=== PATIENT | male | born 1960 | race Caucasian/White ===

== ENCOUNTER 2017-11-20 19:41 | Emergency (ER) | payer OTHER ==
[~2017-11-20] VITALS: Ht 182.9 cm; Wt 109.4 kg
[2017-11-20 19:48] VITALS: BP 145/81; PULSE 99; RESP 20; TEMP 97.5; O2SAT 95
[2017-11-20] MEDS ORDERED: LISI10TA3 PO (19:58)
[2017-11-20] MEDS ORDERED: AMLO10TA2 PO (19:58)
[2017-11-20 20:05] VITALS: BP 132/80; PULSE 91; RESP 18; O2SAT 96
[2017-11-20] MEDS ORDERED: TETANUS/DIPHTHERIA TOXOID ADULT 0.5 ML VIAL IM ONE (20:15)
--- NOTE | 2017-11-20 20:16 | PD ---
HPI Chief Complaint: Head Injury Time Seen by Provider: 20:14 Travel History International Travel<30 days: No Contact w/Intl Traveler<30days: No Traveled to known affect area: No History of Present Illness HPI 57-year-old male presents to the emergency department by private transportation the care of his son for evaluation of head injury. According the patient just prior to arrival to the emergency department while trying to get his dog inside from the rain his dog knocked him down causing him to fall forward and he sustained a laceration to the frontal scalp from hitting the screen door threshold. Patient states he did not have loss of consciousness. Patient was able to get up off of the ground on his own without assistance. Patient does not report any upper extremity or lower extremity numbness tingling or weakness and does not note upper extremities being weaker than the lower extremities. Patient does not report any other injury; according the patient he did not injure his chest sternum ribs abdomen pelvis extremities or back. Patient did not report any other injury. Patient does admit to drinking alcohol. Patient does not know his tetanus status. The patient rates his pain as 1/10 in intensity. [facility] Past Medical History Narrative Medical Hypertension, daily alcohol use; ulnar nerve transposition surgery; nursing notes Diminished Hearing: No Hypertension: Yes Tetanus Vaccination: > 5 Years Influenza Vaccination: No Past Surgical History Other Surgery: Yes ("nerve moved in left elbow to help blood flow") Social History Alcohol Use: Yes ("at least 6 beers a day") Tobacco Use: No Substance Use: No Allergies-Medications (Allergen,Severity, Reaction): Coded Allergies: No Known Allergies (Unverified , 11/20/17) Reported Meds & Prescriptions Reported Meds & Active Scripts Active Reported Lisinopril 10 Mg Tab 10 Mg PO DAILY Amlodipine (Amlodipine Besylate) 10 Mg Tab 10 Mg PO DAILY Review of Systems Except as stated in HPI: all other systems reviewed are Neg Physical Exam Narrative GENERAL: Well-developed well-nourished male no acute distress no respiratory distress; GCS 15 SKIN: Warm and dry. HEAD: Atraumatic. Normocephalic. Except for right frontal scalp 5 cm laceration and left forehead 7 cm linear laceration, no palpable bony abnormality. EYES: Pupils equal and round and reactive to light. No scleral icterus. No injection or drainage. ENT: No nasal bleeding or discharge. Mucous membranes pink and moist. NECK: Trachea midline. No JVD. No midline tenderness to direct palpation along the cervical spine no bony step-off cervical collar in place. CARDIOVASCULAR: Regular rate and rhythm. RESPIRATORY: No accessory muscle use. Clear to auscultation. Breath sounds equal bilaterally. GASTROINTESTINAL: Abdomen soft, non-tender, nondistended. Hepatic and splenic margins not palpable. MUSCULOSKELETAL: Extremities without clubbing, cyanosis, or edema. No obvious deformities. NEUROLOGICAL: Awake and alert. No obvious cranial nerve deficits. Motor grossly within normal limits. Five out of 5 muscle strength in the arms and legs. Normal speech. PSYCHIATRIC: Appropriate mood and affect; insight and judgment normal. Data Data Last Documented VS Vital Signs Date Time Temp Pulse Resp B/P (MAP) Pulse Ox O2 Delivery O2 Flow Rate FiO2 11/20/17 20:05 91 18 132/80 (97) 96 Room Air 11/20/17 19:[address] Brain W/O Iv Contrast(Rout) (11/20/17 ) Ct Cerv Spine W/O Contrast (11/20/17 ) Tetanus/Diphtheria Tox Adult (Tetanus/Di (11/20/17 20:15) Cephalexin (Keflex) (11/20/17 21:30) Ed Discharge Order (11/20/17 21:23) MDM Medical Decision Making Medical Screen Exam Complete: Yes Emergency Medical Condition: Yes Medical Record Reviewed: Yes Interpretation(s) Last Impressions Head CT 11/20/17 0000 Signed Impressions: Service Date/Time: Monday, November 20, 2017 20:29 - CONCLUSION: 1. No acute intracranial abnormality. 2. Bilateral maxillary sinus disease. 3. Scalp laceration. John Bryson MD Cervical Spine CT 11/20/17 0000 Signed Impressions: Service Date/Time: Monday, November 20, 2017 20:29 - CONCLUSION: 1. No acute fracture or subluxation. 2. Partial opacification left mastoid air cells could be related to mastoiditis the right clinical setting. John Bryson MD Vital Signs Date Time Temp Pulse Resp B/P (MAP) Pulse Ox O2 Delivery O2 Flow Rate FiO2 11/20/17 20:05 91 18 132/80 (97) 96 Room Air 11/20/17 19:48 97.5 99 20 145/81 (102) 95 Differential Diagnosis Skull fracture or intracranial bleed scalp laceration cervical spine sprain strain fracture central cord injury concussion Narrative Course Cervical collar in place; imaging studies ordered; lacerations repair performed by mid-level provider; tetanus status updated GCS 15 Imaging studies resulted without acute intracranial or bony abnormality; Identified to have bilateral maxillary sinus disease CT cervical spine no bony abnormality per reading radiologist partial opacification of left mastoid air cells Cervical collar removed by me Patient reexamined no sinus tenderness to percussion no postauricular bony or soft tissue abnormalities identified Patient given first dose Keflex in the ED and tetanus status updated Diagnosis Primary Impression: Minor closed head injury Additional Impressions: Cervical myofascial strain Qualified Codes: S16.1XXA - Strain of muscle, fascia and tendon at neck level , initial encounter Forehead laceration Qualified Codes: S01.81XA - Laceration without foreign body of other part of head, initial encounter Scalp laceration Qualified Codes: S01.01XA - Laceration without foreign body of scalp, initial encounter Referrals: Primary Care Physician 2 days Patient Instructions: General Instructions Additional Instructions: 2 day wound check; suture removal at 5-7 days Complete course of antibiotic as prescribed Follow head injury precautions 24 hours Return to the emergency department for any concerns or change in condition Apply ice pack intermittently to areas of soft tissue swelling Avoid alcoholic beverages 24 hours May take as tolerated acetaminophen/Tylenol as often as every 4-6 hours as needed for minor pain or fever 100.4F or greater and/or ibuprofen/Advil/Motrin every 6-8 hours per package directions as needed for fever 100.4F or greater for pain associated with inflammation Med/Other Pt SpecificInfo: Prescription(s) given Scripts Cephalexin (Keflex) 500 Mg Capsule 500 MG PO Q6H for Infection for 7 Days, #28 CAP 0 Refills Prov: Julissa Hilliard MD 11/20/17 Julissa Hilliard MD November 20, 2017 20:16
--- NOTE | 2017-11-20 20:56 | RADRPT ---
EXAM DATE/TIME: 11/20/2017 20:29 [facility] COMPARISON: No previous studies available for comparison. INDICATIONS : Tripped. Fell and hit head. Pain. Frontal laceration. RADIATION DOSE: 62.98 CTDIvol (mGy) MEDICAL HISTORY : Hypertension. SURGICAL HISTORY : None. ENCOUNTER: Initial ACUITY: 1 day PAIN SCALE: 4/10 LOCATION: Left frontal TECHNIQUE: Multiple contiguous axial images were obtained of the head. Using automated exposure control and adj ustment of the mA and/or kV according to patient size, radiation dose was kept as low as reasonably a chievable to obtain optimal diagnostic quality images. DICOM format image data is available electro nically for review and comparison. FINDINGS: CEREBRUM: The ventricles are normal for age. No evidence of midline shift, mass lesion, hemorrhage or acute in farction. No extra-axial fluid collections are seen. POSTERIOR FOSSA: The cerebellum and brainstem are intact. The 4th ventricle is midline. The cerebellopontine angle i s unremarkable. EXTRACRANIAL: The visualized portion of the orbits is intact. Left frontal scalp laceration. Bilateral maxillary si nus disease. SKULL: The calvaria is intact. No evidence of skull fracture. CONCLUSION: 1. No acute intracranial abnormality. 2. Bilateral maxillary sinus disease. 3. Scalp laceration. John Bryson MD on November 20, 2017 at 20:53 Board Certified Radiologist. This report was verified electronically.
--- NOTE | 2017-11-20 20:58 | RADRPT ---
EXAM DATE/TIME: 11/20/2017 20:29 [facility] COMPARISON: No previous studies available for comparison. INDICATIONS : Tripped. Fell and hit head. Pain. RADIATION DOSE: 26.66 CTDIvol (mGy) MEDICAL HISTORY : Hypertension. SURGICAL HISTORY : None. ENCOUNTER: Initial ACUITY: 1 day PAIN SCALE: 5/10 LOCATION: neck TECHNIQUE: Volumetric scanning of the cervical spine was performed. Multiplanar reconstructions in the sagittal, coronal and oblique axial planes were performed. Using automated exposure control and adjustment o f the mA and/or kV according to patient size, radiation dose was kept as low as reasonably achievable to obtain optimal diagnostic quality images. DICOM format image data is available electronically f or review and comparison. FINDINGS: VERTEBRAE: Normal vertebral body height. Minimal fluid left mastoid air cells. ALIGNMENT: No evidence of subluxation. C2-C3: The bony spinal canal is normal in size. No evidence of disc bulge or herniation. The neural forami na are bilaterally patent. C3-C4: The bony spinal canal is normal in size. No evidence of disc bulge or herniation. The neural forami na are bilaterally patent. C4-C5: The bony spinal canal is normal in size. No evidence of disc bulge or herniation. The neural forami na are bilaterally patent. C5-C6: The bony spinal canal is normal in size. No evidence of disc bulge or herniation. The neural forami na are bilaterally patent. C6-C7: The bony spinal canal is normal in size. No evidence of disc bulge or herniation. The neural forami na are bilaterally patent. C7-T1: The bony spinal canal is normal in size. No evidence of disc bulge or herniation. The neural forami na are bilaterally patent. CONCLUSION: 1. No acute fracture or subluxation. 2. Partial opacification left mastoid air cells could be related to mastoiditis the right clinical se tting. John Bryson MD on November 20, 2017 at 20:55 Board Certified Radiologist. This report was verified electronically.
--- NOTE | 2017-11-20 21:18 | PD ---
Physical Exam Narrative I was asked by my attending physician Dr. Hilliard to reform laceration repair Data Data Last Documented VS Vital Signs Date Time Temp Pulse Resp B/P (MAP) Pulse Ox O2 Delivery O2 Flow Rate FiO2 11/20/17 20:05 91 18 132/80 (97) 96 Room Air 11/20/17 19:[address] Brain W/O Iv Contrast(Rout) (11/20/17 ) Ct Cerv Spine W/O Contrast (11/20/17 ) Tetanus/Diphtheria Tox Adult (Tetanus/Di (11/20/17 20:15) MDM Supervised Visit with ROXANA: Yes Procedures Procedure Narrative LACERATION LOCATION: Wound #1 left forehead, wound #2 right frontal scalp LENGTH: Wound #1 6.5 cm, wound #2 2.5 cm NUMBER OF STITCHES/YU: 12 sutures, 4 yu REPAIR: The area of the laceration was prepped with Betadine and sterilely draped. The laceration was infiltrated with 1% lidocaine. The wound was copiously irrigated and explored without evidence of foreign body, tendon injury or neurovascular injury. The wound was closed using 5-0 Ethilon and yu. This was a single layer repair. A sterile dressing was applied. The patient was advised to keep the dressing clean and dry. Patient tolerated the procedure well. Veronica Alvarez November 20, 2017 21:18
[2017-11-20] MEDS ORDERED: CEPH-460 PO (21:24)
[2017-11-20] MEDS ORDERED: CEPHALEXIN MONOHYDRATE 500 MG CAP PO ONE (21:30)
[2017-11-20 21:33] VITALS: BP 150/88
== END 2017-11-20 21:46 | disposition home or self-care (01) ==
LOC: PHED 19:41
DX: S01.01XA Laceration without foreign body of scalp, initial encounter (principal); S01.81XA Laceration without foreign body of other part of head, initial encounter; S16.1XXA Strain of muscle, fascia and tendon at neck level, initial encounter; W01.0XXA Fall on same level from slipping, tripping and stumbling without subsequent striking against object, initial encounter; I10 Essential (primary) hypertension
CPT/HCPCS: 12001; 12014; 70450; 72125; 90471; 90714